=== PATIENT | female | born 2000 | race Two or more races ===

== ENCOUNTER 2024-10-13 12:00 | Emergency (ER) | payer MEDICAID, SELFPAY ==
[2024-10-13] VITALS (11 sets, daily range): BP systolic 95–124; BP diastolic 62–83; PULSE 74–108; RESP 16–19; TEMP 36.6–37.1; O2SAT 100; BMI 26.7
--- NOTE | 2024-10-13 12:45 | PD.EDRME ---
Rapid Medical Screening Exam RME Arrival date/time: 10/13/24 12:00 24-year-old female presents the emergency department today for complaints of low hemoglobin patient does report having tubal ligation 3 months ago Chief Complaint: Recheck/Abnormal Lab/Rx Time Seen by Provider: 10/13/24 12:06 Vital signs: Vital Signs Temperature 98.0 F 10/13/24 12:37 Pulse Rate 100 10/13/24 12:37 Respiratory Rate 19 10/13/24 12:37 Blood Pressure 124/83 10/13/24 12:37 Pulse Oximetry (%) 100 10/13/24 12:37 Oxygen Delivery Method Room Air 10/13/24 12:37
[2024-10-13 13:09] LABS: Basophils % (Auto) 1 % (0-2.5); Eosinophils % (Auto) 1 % (0-10); Hematocrit 23.2 % (36.0-46.0); Immature Granulocytes % (Auto) 0 % (0-0); Immature Granulocytes Auto 0.02 Thou/mm3 (0.00-0.00); Lymphocytes # (Auto) 1.4 Thou/mm3 (1.0-4.8); Lymphocytes % (Auto) 30 % (10-50); Mean Corpuscular HGB Conc 25.4 g/dl (31.0-37.0); Mean Corpuscular Volume 55 fL (80-100); Monocytes # (Auto) 0.4 Thou/mm3 (0.0-0.8); Monocytes % (Auto) 8 % (0-12); Neutrophils # (Auto) 2.7 Thou/mm3 (1.8-7.7); Neutrophils % (Auto) 60 % (37-80); Nucleated Red Blood Cell % 0 /100 WBC (0); Platelet Count 265 Thou/mm3 (140-440); RDW Standard Deviation 38.4 fL (36.4-46.3); Red Blood Count 4.22 Miln/mm3 (4.00-5.20); White Blood Count 4.5 Thou/mm3 (3.6-11.0)
[2024-10-13 13:25] LABS: Alanine Aminotransferase 21 U/L (10-49); Albumin, Serum 4.8 gm/dL (3.5-5.0); Albumin/Globulin Ratio 1.9 (1.2-2.2); Alkaline Phosphatase 65 U/L (46-116); Anion Gap 7 (7-16); Aspartate Amino Transferase 15 U/L (0-34); BUN/Creatinine Ratio 22 Ratio (12-20); Bilirubin,Total 0.4 mg/dL (0.3-1.2); Blood Urea Nitrogen 11 mg/dL (9-23); Calcium 9.6 mg/dL (8.3-10.6); Calcium (Corrected) 9.6 mg/dL (8.5-10.1); Carbon Dioxide 24.7 mMol/L (20.0-31.0); Chloride 107 mMol/L (98-107); Creatinine (Component) 0.5 mg/dL (0.6-1.3); Estimated Creatinine Clearance 140.4 mL/min (>60); Globulin 2.5 gm/dL (2.3-3.5); Glucose 123 mg/dL (74-106); Osmolality,Calculated 277 (275-295); Sodium 139 mMol/L (136-145); Total Protein 7.3 gm/dL (5.7-8.2); eGFR > 60 See Note
[2024-10-13 13:27] LABS: Hemoglobin 5.9 g/dL (12.0-16.0)
[2024-10-13 13:39] LABS: Path Review Blood Smear Sent to Pathologist
[2024-10-13 15:06] LABS: Partial Thromboplastin Time 23.3 Seconds (22.0-36.0)
--- NOTE | 2024-10-13 20:06 | EDNOTE_ITS ---
ED Recheck Abnl Lab Rx-RME/HPI General Chief Complaint: Recheck/Abnormal Lab/Rx Stated Complaint: LOW HGB Time Seen by Provider: 10/13/24 12:06 Arrival date/time: 10/13/24 12:00 RME / HPI RME / HPI narrative: 24-year-old female patient was brought in by family for evaluation regarding possible blood transfusion. According to the family patient has been having heavy menstruation, every month she is bleeding at least 15 days straight. Currently she is not bleeding. Patient had tubal ligation about 3 months ago. Patient complained of easy fatigability, generalized body weakness, and dyspnea on exertion. No medication was taken prior to arrival. Related Data Previous Rx's ?Medication ?Instructions ?Recorded ferrous sulfate, dried 160 mg (50 160 mg PO TID #90 tabs 10/13/24 mg iron) tablet,extended release Allergies Allergy/AdvReac Type Severity Reaction Status Date / Time No Known Allergies Allergy Verified 10/13/24 12:02 Review of Systems Review of Systems Narrative Review of Systems: Review of system reviewed and within normal limits except mentioned in HPI ED Exam Narrative Physical exam: VITAL SIGNS: Reviewed. GENERAL APPEARANCE: Alert and interactive, follows commands, no acute distress, HEAD AND FACE: Non-traumatic. ENT: PERRL, pale conjunctiva, eyelid no trauma, Mucous membrane moist. NECK: Supple, nontender, no nuchal rigidity. CHEST: No tenderness, no crepitus, no paradoxical movement, no retractions. LUNGS: Clear, well ventilated, symmetric, no rales, no wheezing, no ronchi, no stridor, good breath sounds bilaterally. HEART: Regular rate, regular rhythm, no murmur, no gallops. ABDOMEN: Soft, positive bowel sounds, nondistended, no guarding, nontender, no rebound, no masses, RECTAL: Deferred. GENITAL: Deferred. NEUROLOGICAL: Gross motor function intact sensory function intact, Appropriate for age. MUSCULOSKELETAL: low back nontender, full range of motion. EXTREMITIES: Nontender, full range of motion. SKIN: Color pale, dry, no rash, no lacerations, no abrasions, no contusions. LYMPHATICS: Deferred. Course Quality Measures none Orders Category Date Time Status Occult Blood,Stool (Nursing) ONCE Care 10/13/24 14:20 Active Transfuse,blood/blood products ONCE Care 10/13/24 14:20 Active CBC Stat Lab 10/13/24 12:50 Completed Comprehensive Metabolic Panel Stat Lab 10/13/24 12:50 Completed Partial Thromboplastin Time Stat Lab 10/13/24 12:50 Completed Path Review Blood Smear Stat Lab 10/13/24 12:50 Completed Prothrombin Time with INR Stat Lab 10/13/24 12:50 Completed Type and Screen Stat Lab 10/13/24 12:50 Results prbc [Red Blood Cells] Stat Lab 10/13/24 12:50 Results Vital Signs Vital signs: Vital Signs Temperature 98.0 F 10/13/24 12:37 Pulse Rate 100 10/13/24 12:37 Respiratory Rate 19 10/13/24 12:37 Blood Pressure 124/83 10/13/24 12:37 Pulse Oximetry (%) 100 10/13/24 12:37 Oxygen Delivery Method Room Air 10/13/24 12:37 Recheck / Abnormal Lab / Rx MDM Narrative MDM Narrative:: 24-year-old female patient was brought in by family for evaluation regarding possible blood transfusion. According to the family patient has been having heavy menstruation, every month she is bleeding at least 15 days straight. Currently she is not bleeding. Patient had tubal ligation about 3 months ago. Patient complained of easy fatigability, generalized body weakness, and dyspnea on exertion. No medication was taken prior to arrival. Patient's hemoglobin today was noted to be 5.9, hematocrit of 23.2 platelets is normal. The rest of the labs unremarkable. Patient received 2 units of packed RBC. Patient tolerated the procedure well. Patient data External records reviewed:: None Clinical information provided by:: patient Social determinants that could affect healthcare access:: none Patient has the following chronic illnesses:: None How is presenting disease/condition affected by chronic disease/condition?: no chronic disease Evaluation data The following diagnostics were reviewed and interpreted by me:: lab results Lab and/or radiology exams considered but not ordered:: None . Interpretation Summary: hemoglobin today was noted to be 5.9, hematocrit of 23.2. The rest of the labs unremarkable Medications / Prescriptions Medications or Prescriptions considered but not ordered:: None Medication administrations:: 2 units of packed RBC Consultations Consultation(s) initiated? (list below): No Diagnosis Recheck Differential Diagnosis: other (Menometrorrhagia, anemia, iron deficiency anemia) Most likely diagnosis given after review of the tests above:: Severe anemia, menometrorrhagia Admission Indicated Admission indicated?: not indicated Explain why admission is indicated or not indicated:: Stable Admission Request Was there a request for admission?: No Disposition Plan Disposition Plan: Discharge Discharge Attestation Discharge Attestation: The patient and all family members were given an opportunity to ask questions and understood the discharge instructions. Discharge instructions specifically effects, indications for sooner follow up or return to the emergency department, and the expected course of current diagnosis. Patient condition: Stable Discharge Plan Plan Patient Disposition: HOME (Self Care) Disposition Comment: Stable Prescriptions/Referrals Prescriptions/Med Rec: New ferrous sulfate, dried 160 mg (50 mg iron) tablet extended release 160 mg PO TID Qty: 90 0RF Referrals: Vazquez Haywood MD [Primary Care Provider] - In 1 week Problem List Clinical Impression: Severe anemia, Menometrorrhagia Patient/Caregiver Discharge Instructions Discharge Activity: activity as tolerated Education Materials: Anemia, Understanding Uterine Bleeding Additional Instructions: Thank you for the opportunity for serving you today. You are stable for discharged . You are advised to: Follow-up with your PCP in 1 to 2 days and asked for referral to [facility]IST[facility] Return to ED for worsening of symptoms Increase oral fluids Print Language: Polish Stand Alone Forms: Brigitte Award Info., Patient Portal Info Letter MARCELINA/GHADA Supervising Physician MARCELINA/GHADA Supervising Physician: MD Deng
== END 2024-10-13 23:15 | disposition home or self-care (01) ==
PROVIDERS: Nurse Practitioner Primary Care; Emergency Provider Emergency Medicine; PCP Family Medicine
DX: D64.9 Anemia, unspecified (principal); N92.1 Excessive and frequent menstruation with irregular cycle
CPT/HCPCS: 36415; 36430; 80053; 85025; 85610; 85730; 86850; 86900; 86901; 86923; 99285; P9016